=== PATIENT | female | born 1985 | race Caucasian/White ===

== ENCOUNTER 2021-08-07 09:50 | Outpatient (CLI) | payer OTHER, SELFPAY ==
[2021-08-07] VITALS (13 sets, daily range): BP systolic 146–169; BP diastolic 94–104; PULSE 68–81; RESP 16; TEMP 37.4; BMI 21.6
[2021-08-07] MEDS: LABETALOL HCL 100 MG TABLET PO (10:33)
[2021-08-07 10:34] LABS: Basophils Percent Auto 0.2 % (0.2-1.2); Eosinophils Absolute Auto 0.1 K/mm3 (0-0.3); Eosinophils Percent Auto 0.7 % (0-4.4); Hematocrit 35.7 % (37.0-47.0); Hemoglobin 12.1 g/dL (12.0-15.0); Immature Granulocyte Absolute 0.05 K/mm3 (0.00-0.031); Immature Granulocyte Percent A 0.6 % (0-0.5); Lymphocytes Absolute Auto 1.54 K/mm3 (0.9-3.2); Lymphocytes Percent Auto 18.6 % (18.3-44.2); Mean Corpuscular HGB Conc 33.9 g/dl (32-36); Mean Corpuscular Volume 97.3 fl (80-100); Mean Platelet Volume 10.7 fl (7.4-10.4); Monocytes Absolute Auto 0.6 K/mm3 (0.1-0.6); Monocytes Percent Auto 7.7 % (2.6-8.5); Neutrophils Percent Auto 72.2 % (45.5-73.1); Platelet Count Result 185 k/mm3 (150-375); Red Blood Count 3.67 M/mm3 (4.2-5.4); Red Cell Distribution Width 12.9 % (11.5-14.5); White Blood Count 8.3 K/mm3 (4.5-10.0)
[2021-08-07 10:42] LABS: Alanine Aminotransferase 14 U/L (4-35); Albumin Level 3.6 g/dL (3.5-5.1); Alkaline Phosphatase 60 U/L (38-126); Anion Gap 2 mmol/L (8-16); Appearance Urine Clear (Clear); Aspartate Amino Transferase 21 U/L (14-36); Bilirubin Urine Negative (Negative); Bilirubin,Total < 0.1 mg/dL (0.2-1.3); Blood Urea Nitrogen 13 mg/dL (7-17); Blood Urine Negative (Negative); Calcium 8.6 mg/dL (8.4-10.2); Carbon Dioxide 24 mmol/L (22-30); Chloride 107 mmol/L (98-107); Color Urine Yellow (Yellow); Estimated Glomerular Filt Rate > 60; Glucose 82 mg/dL (65-110); Glucose Urine UA Negative (Negative); Ketones Urine Negative (Negative); Leukocyte Esterase Ur Negative LEU/UL (Negative); Nitrate Urine Negative (Negative); Protein Urine Negative (Negative); Sodium 133 mmol/L (137-145); Urobilinogen Urine 0.2 mg/dL (<2.0)
[2021-08-07 10:43] LABS: Total Protein Urine Random 13 mg/dL; Ur Ttl Prot Creatinine Ratio 0.68 mg/mg (0-0.20)
[2021-08-07 10:45] LABS: Add Urine Microscopic? NO
--- NOTE | 2021-08-07 11:57 | PC.NURSE ---
Dr. Wallis on unit and reviewed BP's with him. Labetalol 100 mg was given PO at 1033. Reviewed lab results and FHR tracing. Discharge instructions received. Pt was already instructed in the office today to increase her Labetalol to 200 mg by mouth every 12 hrs. Pt to check BP's at home twice a day and notify Dr. Wallis if either SBP is >160 OR DBP is > 100. Supplies given for 24 hr urine collection.
--- NOTE | 2021-08-07 11:58 | WPDOBADMIT ---
Obstetrics - Admit Note Admission Note: record reviewed. Additions to the history and/or subsequent changes in the physical findings follow. 36 y/o at 29 weeks gestation with chronic HTN, here with elevated bp at home and in the office. No headaches, visual field change or epigastric / RUQ pain. Good movement. Takes labetalol 100 mg po bid. BP 150/90. AVSS ABD soft, nontender, gravid NST good variability; TOCO: no contrations EXT nontender, no edema. NEURO: DTR 2/4 and symmetric Labs normal, with exception of elevated urine Pr/Cr of 0.68. A: CHTN, with worsening bp control. P: Home to collect 24 hour urine for protein. Increase labetalol to 200 mg po bid. F/u early next week as scheduled. Reviewed instructions, precautions.
== END 2021-08-07 12:15 | disposition home or self-care (01) ==
LOC: ANHOBOP 09:58 → ANHOBPP 10:01
PROVIDERS: PCP Physician Assistant; Visit Provider Obstetrics & Gynecology
DX: O16.3 Unspecified maternal hypertension, third trimester (principal); Z3A.34 34 weeks gestation of pregnancy
CPT/HCPCS: 36415; 59025; 80053; 81003; 82570; 84156; 84550; 85025; 99199; A9270

== ENCOUNTER 2021-08-09 09:41 | Outpatient (CLI) | payer OTHER, SELFPAY ==
[2021-08-09 09:52] VITALS: BMI 21.6
[2021-08-09 10:11] LABS: Collection Time Urine 24 HOURS
[2021-08-09 10:15] LABS: Total Volume 24 Hour Urine 2800 ml
[2021-08-09 10:23] LABS: Creatinine Clearance Urine 111.1 ml/min (75-125); Creatinine Urine 35.2 mg/dL; Patient Weight 118 Lbs
[2021-08-09 10:31] LABS: Specific Gravity Ur 1.008
[2021-08-09 11:16] LABS: Total Protein Urine 24 Hr 168 mg/24hr (0-149); Total Protein Urine Random < 6.0 mg/dL (0.0-11.9)
== END 2021-08-09 09:42 | disposition home or self-care (01) ==
LOC: ANHOBOP 09:47
PROVIDERS: PCP Physician Assistant; Visit Provider Obstetrics & Gynecology
DX: O13.9 Gestational [pregnancy-induced] hypertension without significant proteinuria, unspecified trimester (principal); Z3A.00 Weeks of gestation of pregnancy not specified
CPT/HCPCS: 81050; 82575; 84156

== ENCOUNTER 2021-08-28 21:20 | Outpatient (CLI) | payer OTHER, SELFPAY ==
[2021-08-28] VITALS (8 sets, daily range): BP systolic 130–187; BP diastolic 81–103; PULSE 66–92
[2021-08-28 21:55] LABS: Basophils Percent Auto 0.3 % (0.2-1.2); Eosinophils Absolute Auto 0.1 K/mm3 (0-0.3); Eosinophils Percent Auto 1.1 % (0-4.4); Hematocrit 36.3 % (37.0-47.0); Hemoglobin 12.2 g/dL (12.0-15.0); Immature Granulocyte Absolute 0.03 K/mm3 (0.00-0.031); Immature Granulocyte Percent A 0.3 % (0-0.5); Mean Corpuscular HGB Conc 33.6 g/dl (32-36); Mean Corpuscular Hemoglobin 32.4 pg (26-34); Mean Corpuscular Volume 96.5 fl (80-100); Mean Platelet Volume 11.6 fl (7.4-10.4); Monocytes Absolute Auto 0.8 K/mm3 (0.1-0.6); Monocytes Percent Auto 8.6 % (2.6-8.5); Neutrophils Absolute Auto 5.6 K/mm3 (1.3-6.7); Neutrophils Percent Auto 60.7 % (45.5-73.1); Platelet Count Result 155 k/mm3 (150-375); Red Blood Count 3.76 M/mm3 (4.2-5.4); Red Cell Distribution Width 12.6 % (11.5-14.5); White Blood Count 9.3 K/mm3 (4.5-10.0)
[2021-08-28 21:56] LABS: Appearance Urine Clear (Clear); Bilirubin Urine Negative (Negative); Color Urine Yellow (Yellow); Glucose Urine UA Negative (Negative); Ketones Urine Negative (Negative); Leukocyte Esterase Ur Negative LEU/UL (NEGATIVE); Nitrate Urine Negative (Negative); Protein Urine Negative (Negative); Specific Grav Ur 1.015 (1.001-1.035); Urobilinogen Urine 0.2 mg/dL (<2.0)
[2021-08-28 22:02] LABS: Mucus Urine Rare /lpf; Squamous Epithelial Cell Urine Many /hpf (Few); WBC Urine 0-3 /hpf (0-3)
[2021-08-28 22:03] LABS: Add Urine Microscopic? YES; Blood Urine Trace-Intact (Negative)
[2021-08-28 22:04] LABS: Total Protein Urine Random 11 mg/dL
[2021-08-28 22:11] LABS: Creatinine Urine 41.1 mg/dL; Ur Ttl Prot Creatinine Ratio 0.27 mg/mg (0-0.20)
--- NOTE | 2021-08-28 22:23 | PC.NURSE ---
Paged Dr. Wallis
[2021-08-28 22:24] LABS: Alanine Aminotransferase 17 U/L (4-35); Albumin Level 3.6 g/dL (3.5-5.1); Alkaline Phosphatase 85 U/L (38-126); Anion Gap 4 mmol/L (8-16); Aspartate Amino Transferase 25 U/L (14-36); Bilirubin,Total < 0.1 mg/dL (0.2-1.3); Blood Urea Nitrogen 16 mg/dL (7-17); Calcium 8.7 mg/dL (8.4-10.2); Carbon Dioxide 22 mmol/L (22-30); Chloride 107 mmol/L (98-107); Estimated Glomerular Filt Rate > 60; Glucose 90 mg/dL (65-110); Potassium 3.9 mmol/L (3.4-5.0); Sodium 133 mmol/L (137-145); Uric Acid 6.6 mg/dL (2.5-7.5)
[2021-08-28] MEDS: NIFEdipine 10 MG CAPSULE PO (22:42)
--- NOTE | 2021-08-28 23:06 | PC.NURSE ---
[id number]- Dr. Wallis responded to page. report given. BP's reviewed. order received to start Procardia 10mg PO now and may give second dose in 30 minutes if BP remains >160/110. will continue to monitor pt and call if questions/concerns.
--- NOTE | 2021-08-28 23:47 | PC.NURSE ---
paged Dr. Wallis
== END 2021-08-28 23:55 | disposition home or self-care (01) ==
LOC: ANHOBOP 21:25 → ANHOBPP 09-02 06:43
PROVIDERS: PCP Physician Assistant; Visit Provider Obstetrics & Gynecology
DX: O13.9 Gestational [pregnancy-induced] hypertension without significant proteinuria, unspecified trimester (principal); Z3A.00 Weeks of gestation of pregnancy not specified
CPT/HCPCS: 36415; 59025; 80053; 81001; 82570; 84156; 84550; 85025; 87086; 87088; 99199; A9270

== ENCOUNTER 2021-09-04 09:53 | Outpatient (RCR) | payer OTHER, SELFPAY ==
[2021-08-26 14:55] VITALS: BP 152/88; PULSE 84
[2021-09-04 10:39] VITALS: BP 154/99; PULSE 77
== END 2021-11-24 23:59 | disposition home or self-care (01) ==
LOC: ANHOBOP 09:53
PROVIDERS: PCP Physician Assistant; Visit Provider Obstetrics & Gynecology
DX: O16.3 Unspecified maternal hypertension, third trimester (principal); Z3A.31 31 weeks gestation of pregnancy; Z3A.33 33 weeks gestation of pregnancy
CPT/HCPCS: 59025

== ENCOUNTER 2021-09-08 21:37 | Inpatient (IN) | payer OTHER, SELFPAY ==
[2021-09-08] VITALS (21 sets, daily range): BP systolic 135–202; BP diastolic 90–119; PULSE 78–99; BMI 22.9
[2021-09-08 17:28] LABS: Basophils Absolute Auto 0.1 K/mm3 (0.0-0.1); Basophils Percent Auto 0.5 % (0.2-1.2); Eosinophils Absolute Auto 0.1 K/mm3 (0-0.3); Eosinophils Percent Auto 1.2 % (0-4.4); Hematocrit 36.1 % (37.0-47.0); Hemoglobin 12.3 g/dL (12.0-15.0); Immature Granulocyte Absolute 0.04 K/mm3 (0.00-0.031); Immature Granulocyte Percent A 0.4 % (0-0.5); Lymphocytes Absolute Auto 2.23 K/mm3 (0.9-3.2); Lymphocytes Percent Auto 23.2 % (18.3-44.2); Mean Corpuscular HGB Conc 34.1 g/dl (32-36); Mean Corpuscular Hemoglobin 32.9 pg (26-34); Mean Corpuscular Volume 96.5 fl (80-100); Mean Platelet Volume 11.2 fl (7.4-10.4); Monocytes Absolute Auto 0.9 K/mm3 (0.1-0.6); Monocytes Percent Auto 9.1 % (2.6-8.5); Neutrophils Absolute Auto 6.3 K/mm3 (1.3-6.7); Neutrophils Percent Auto 65.6 % (45.5-73.1); Platelet Count Result 166 k/mm3 (150-375); Red Blood Count 3.74 M/mm3 (4.2-5.4); Red Cell Distribution Width 12.5 % (11.5-14.5); White Blood Count 9.6 K/mm3 (4.5-10.0)
[2021-09-08 17:29] LABS: Appearance Urine Clear (Clear); Bilirubin Urine Negative (Negative); Glucose Urine UA Negative (Negative); Ketones Urine Negative (Negative); Leukocyte Esterase Ur Negative LEU/UL (NEGATIVE); Nitrate Urine Negative (Negative); Protein Urine Negative (Negative); Specific Grav Ur 1.015 (1.001-1.035); Urobilinogen Urine 0.2 mg/dL (<2.0)
[2021-09-08 17:37] LABS: Add Urine Microscopic? YES; Blood Urine Trace-Intact (Negative); Color Urine Light Yellow (Yellow)
[2021-09-08 17:38] LABS: Alanine Aminotransferase 24 U/L (6-35); Albumin Level 3.7 g/dL (3.5-5.1); Alkaline Phosphatase 97 U/L (38-126); Anion Gap 4 mmol/L (8-16); Aspartate Amino Transferase 27 U/L (14-36); Bilirubin,Total < 0.1 mg/dL (0.2-1.3); Blood Urea Nitrogen 17 mg/dL (7-17); Calcium 8.7 mg/dL (8.4-10.2); Carbon Dioxide 22 mmol/L (22-30); Chloride 105 mmol/L (98-107); Creatinine Urine 17.9 mg/dL; Estimated Glomerular Filt Rate > 60; Glucose 87 mg/dL (65-110); Potassium 4.1 mmol/L (3.4-5.0); Sodium 131 mmol/L (137-145); Total Protein Urine Random 22 mg/dL; Ur Ttl Prot Creatinine Ratio 1.23 mg/mg (0-0.20); Uric Acid 6.8 mg/dL (2.5-7.5)
[2021-09-08 17:41] LABS: RBC Urine 0-2 /hpf (0-2); Squamous Epithelial Cell Urine Occasional /hpf (Few); WBC Urine 0-3 /hpf (0-3)
--- NOTE | 2021-09-08 17:44 | PC.NURSE ---
Dr. Duarte notified of pt blood pressures and blood work. Orders received for pt to received 20mg IV labetalol and order steroids.
--- NOTE | 2021-09-08 17:46 | PC.NURSE ---
Dr. Duarte called back stating Dr. Wallis will come down and see the pt.
[2021-09-08] MEDS: LABETALOL HCL INJ 100 MG/20 ML VIAL 20 MG IV PUSH (18:16)
[2021-09-08] MEDS: BETAMETHASONE SOD PHOS/ACETATE 30 MG/5 ML VIAL 12 MG IM (18:20)
[2021-09-08] MEDS: LABETALOL HCL INJ 100 MG/20 ML VIAL 40 MG IV PUSH (18:45)
[2021-09-08] MEDS: NIFEdipine 10 MG CAPSULE PO (19:10)
[2021-09-09] VITALS (25 sets, daily range): BP systolic 142–168; BP diastolic 72–109; PULSE 68–119; RESP 14–16; TEMP 36.8; O2SAT 96–98
[2021-09-09 05:46] LABS: Basophils Percent Auto 0.1 % (0.2-1.2); Hematocrit 37.8 % (37.0-47.0); Hemoglobin 13.1 g/dL (12.0-15.0); Immature Granulocyte Absolute 0.06 K/mm3 (0.00-0.031); Immature Granulocyte Percent A 0.6 % (0-0.5); Lymphocytes Percent Auto 10.4 % (18.3-44.2); Mean Corpuscular HGB Conc 34.7 g/dl (32-36); Mean Corpuscular Volume 95.2 fl (80-100); Mean Platelet Volume 11.2 fl (7.4-10.4); Monocytes Absolute Auto 0.2 K/mm3 (0.1-0.6); Monocytes Percent Auto 1.9 % (2.6-8.5); Neutrophils Absolute Auto 8.4 K/mm3 (1.3-6.7); Platelet Count Result 177 k/mm3 (150-375); Red Blood Count 3.97 M/mm3 (4.2-5.4); Red Cell Distribution Width 12.3 % (11.5-14.5); White Blood Count 9.7 K/mm3 (4.5-10.0)
[2021-09-09 05:56] LABS: Alanine Aminotransferase 27 U/L (6-35); Albumin Level 3.9 g/dL (3.5-5.1); Alkaline Phosphatase 112 U/L (38-126); Anion Gap 6 mmol/L (8-16); Aspartate Amino Transferase 29 U/L (14-36); Bilirubin,Total < 0.1 mg/dL (0.2-1.3); Blood Urea Nitrogen 15 mg/dL (7-17); Carbon Dioxide 18 mmol/L (22-30); Chloride 108 mmol/L (98-107); Estimated CRCL calculation 68 ml/min; Estimated Glomerular Filt Rate > 60; Glucose 172 mg/dL (65-110); Potassium 4.4 mmol/L (3.4-5.0); Sodium 132 mmol/L (137-145); Uric Acid 6.8 mg/dL (2.5-7.5)
[2021-09-09] MEDS: ASPIRIN 81 MG CHEWABLE TABLET PO (06:37)
[2021-09-09] MEDS: LABETALOL HCL 100 MG TABLET 300 MG PO ×2 (07:03→19:00)
[2021-09-09] MEDS: NIFEdipine 30 MG TAB.ER.24 60 MG PO (07:03)
[2021-09-09] MEDS: CHOLECALCIFEROL 1,000 UNITS TABLET 2000 UNITS PO (09:00)
[2021-09-09] MEDS: MULTIVIT/MIN/PREN/FOL AC/IRON TABLET 1 TAB PO (09:21)
[2021-09-09] MEDS: LORATADINE 10 MG TABLET PO (09:21)
[2021-09-09] MEDS: NIFEdipine 10 MG CAPSULE PO ×2 (11:52→13:13)
--- NOTE | 2021-09-09 15:45 | PC.NURSE ---
Paged Dr. Wallis ab pt BP
--- NOTE | 2021-09-09 16:15 | PC.NURSE ---
Called Bimal and KANDI about pt BP
--- NOTE | 2021-09-09 17:26 | PM.IMHP ---
H&P: HPI History of Present Illness Date/Time: 09/09/21 17:26 36 y/o at 33 5/7 weeks by IVF dating. She has chronic hypertension and bp has worsened over recent weeks. Currently taking labetalol 300 mg po bid and Procardia XL 60 mg q am. She phoned because bp was elevated at home. Was instructed to come to L&D last evening and bp found to be 190/120 on admission. BP did not respond much to IV labetalol, but did respond to nifedipine 10 mg po last evening. Betamethasone IM given last night, and 24 hour urine collection begun. Dull sinus headache this morning, but nothing severe. No visual field change. No abdominal pain. No edema. Good movement. No contractions. No vaginal bleeding. She has an appointment with [facility] in two days. Chief Complaint: Hi blood pressure Review of Systems Review of Systems: All systems reviewed & are unremarkable except as noted in HPI and below PMFSH Past Medical History Medical History (Updated 09/09/21 @ 17:31 by Sanjiv Wallis MD) Chronic hypertension affecting History of gestational diabetes Surgical History Surgical History History of dilation and curettage Comments History of FAVD at 40 4/7 weeks, complicated by GDM Meds Home Medications and Allergies Home Medications Medication Instructions Recorded Confirmed Type PNV cmb#95-ferrous fumarate-FA 1 tablet PO DAILY 08/07/21 09/08/21 History [] aspirin 81 mg PO DAILY 08/07/21 09/08/21 History cholecalciferol (vitamin D3) 2,000 unit PO DAILY 08/07/21 09/08/21 History [Vitamin D3] labetalol 300 mg PO BID 08/07/21 09/08/21 History nifedipine 60 mg PO DAILY 09/08/21 09/08/21 History Allergies Allergy/AdvReac Type Severity Reaction Status Date / Time Penicillins Allergy Mild Rash Verified 08/07/21 10:40 Vital Signs Vital Signs - 24 hr 09/08/21 17:30 09/08/21 17:36 09/08/21 17:45 Temperature Pulse Rate 79 78 Blood Pressure 190/111 H 195/101 H 177/112 H Pulse Oximetry 09/08/21 18:15 09/08/21 18:16 09/08/21 18:30 Temperature Pulse Rate 81 81 78 Blood Pressure 192/116 H 173/111 H Pulse Oximetry 09/08/21 18:45 09/08/21 19:00 09/08/21 19:30 Temperature Pulse Rate 84 86 88 Blood Pressure 178/119 H 150/99 H Pulse Oximetry 09/08/21 19:40 09/08/21 19:50 09/08/21 20:00 Temperature Pulse Rate 97 95 99 Blood Pressure 141/90 H 144/91 H 135/99 H Pulse Oximetry 09/08/21 20:10 09/08/21 20:20 09/08/21 20:30 Temperature Pulse Rate 98 96 92 Blood Pressure 154/103 H 146/96 H 138/97 H Pulse Oximetry 09/08/21 20:45 09/08/21 21:00 09/08/21 21:15 Temperature Pulse Rate 93 92 93 Blood Pressure 149/98 H 138/95 H 139/96 H Pulse Oximetry 09/08/21 23:35 09/09/21 03:15 09/09/21 05:34 Temperature Pulse Rate 96 98 106 H Blood Pressure 143/98 H 158/100 H 157/99 H Pulse Oximetry 09/09/21 06:39 09/09/21 06:43 09/09/21 07:49 Temperature 36.8 C Pulse Rate 97 98 Blood Pressure 160/107 H Pulse Oximetry 09/09/21 07:50 09/09/21 07:56 09/09/21 09:35 Temperature Pulse Rate 95 92 Blood Pressure 153/104 H 164/106 H 159/102 H Pulse Oximetry 09/09/21 11:39 09/09/21 12:55 09/09/21 14:15 Temperature Pulse Rate 92 Blood Pressure 160/109 H 166/102 H 154/102 H Pulse Oximetry 09/09/21 14:41 09/09/21 14:46 09/09/21 14:51 Temperature Pulse Rate Blood Pressure Pulse Oximetry 98 97 97 09/09/21 14:56 09/09/21 15:01 09/09/21 15:06 Temperature Pulse Rate Blood Pressure Pulse Oximetry 98 96 97 09/09/21 15:11 09/09/21 15:16 09/09/21 15:21 Temperature Pulse Rate Blood Pressure Pulse Oximetry 97 97 98 09/09/21 15:25 Temperature Pulse Rate Blood Pressure 162/100 H Pulse Oximetry Exam Const: Orientation/consciousness: patient oriented x3 Other: Well-developed, well-nona
--- NOTE | 2021-09-09 17:27 | PC.NURSE ---
Dr. Wallis on unit. Aware of patients BP and HR. Dr. Wallis to bedside.
--- NOTE | 2021-09-09 18:00 | PC.NURSE ---
Dr. Wallis from Bedside. New orders received for ativan 1 mg now, 30 mg Procardia XL now and to repeat every night with her 60 mg Procardia XL every morning, continue labetalol 300mg BID. He would like to be called over night if she has persistent BP of 160/110.
[2021-09-09] MEDS: NIFEdipine 30 MG TAB.ER.24 PO (18:18)
[2021-09-09] MEDS: BETAMETHASONE SOD PHOS/ACETATE 30 MG/5 ML VIAL 12 MG IM (18:28)
--- NOTE | 2021-09-09 18:28 | PC.NURSE ---
Report given to HONEY Camp
[2021-09-09] MEDS: LORazepam (*CRX) 0.5 MG TABLET 1 MG PO (18:59)
[2021-09-09 21:22] LABS: Total Volume 24 Hour Urine 2650 ml
[2021-09-09 21:34] LABS: Total Protein Urine Random 24 mg/dL
[2021-09-09 21:36] LABS: Total Protein Urine 24 Hr 636 mg/24hr (28-141)
[2021-09-09 21:41] LABS: Collection Time Urine 24 HOURS
[2021-09-09 21:47] LABS: Patient Weight 125 Lbs
[2021-09-09 21:48] LABS: Total Volume 24 Hour Urine 2650 ml
[2021-09-09 21:56] LABS: Creatinine Urine 43.9 mg/dL
[2021-09-10] VITALS (7 sets, daily range): BP systolic 148–160; BP diastolic 72–94; PULSE 68–108; RESP 14; TEMP 36.9; O2SAT 98
[2021-09-10] MEDS: NIFEdipine 30 MG TAB.ER.24 60 MG PO (07:02)
[2021-09-10] MEDS: LABETALOL HCL 100 MG TABLET 300 MG PO (07:03)
[2021-09-10] MEDS: CHOLECALCIFEROL 1,000 UNITS TABLET 2000 UNITS PO (09:13)
[2021-09-10] MEDS: MULTIVIT/MIN/PREN/FOL AC/IRON TABLET 1 TAB PO (09:13)
[2021-09-10] MEDS: ASPIRIN 81 MG CHEWABLE TABLET PO (09:14)
--- NOTE | 2021-09-10 09:14 | PM.OBPNVD ---
OB - PN: Subj Subjective Date/time seen: 09/10/21 09:14 No headache, no abdominal pain, no edema. Good movement. Anxiety improved after a dose of Ativan 1 mg po last night. BP 150/90, stable. AVSS. ABD soft, nontender, gravid NST reactive TOCO: no contractions EXT nontender A: Chronic HTN at 33 weeks gestation, now with superimposed preeclampsia. BP improved. Anxiety. P: Continue antihypertensives. S/p steroids. Home on light activity. She has an appointment with [facility] tomorrow. We reviewed instructions and precautions in detail. She will f/u with me next week. OB - PN: Obj Data Labs CBC & Chem 7: 09/09/21 05:40 09/09/21 05:40 Labs: Laboratory Results - last 24 hr 09/08/21 09/08/21 20:50 20:50 U Random Total Protein 24 Ur 24 Hour Volume 2650 2650 Urine Creatinine 43.9 Creatinine Clearance 112.0 Ur Total Protein 24 Hr 636 H OB - PN A/P Time Spent With Patient Time: Total time spent is greater than 50% in coordination of care (as documented) at patient's floor/unit and/or counseling patient:
--- NOTE | 2021-09-16 08:48 | PM.OBTRLD ---
OB - Triage/Final Diagnosis Visit Information Comments/Additional reasons for admission: I have assessed the risk for this patient, Beatrice Fryaney, and determined that she would benefit from observation care. Evaluation Laboratory results: Laboratory Tests 09/08/21 09/08/21 09/08/21 17:21 17:21 17:21 WBC 9.6 RBC 3.74 L Hgb 12.3 Hct 36.1 L MCV 96.5 MCH 32.9 MCHC 34.1 RDW 12.5 Plt Count 166 MPV 11.2 H Immature Gran % (Auto) 0.4 Neut % (Auto) 65.6 Lymph % (Auto) 23.2 Fergus % (Auto) 9.1 H Eos % (Auto) 1.2 Baso % (Auto) 0.5 Lymph # (Auto) 2.23 Fergus # (Auto) 0.9 H Eos # (Auto) 0.1 Baso # (Auto) 0.1 Abs Immat Gran (auto) 0.04 H Absolute Neuts (auto) 6.3 Absolute Nucleated RBC 0.0 Nucleated RBC % 0.0 Sodium Potassium Chloride Carbon Dioxide Anion Gap BUN Creatinine Estim Creat Clear Calc Estimated GFR Glucose Uric Acid Calcium Total Bilirubin AST ALT Alkaline Phosphatase Total Protein Albumin Urine Color Light yellow Urine Appearance Clear Urine pH 7.0 Ur Specific [place] 1.015 Urine Protein Negative Urine Glucose (UA) Negative Urine Ketones Negative Ur Blood (Man) Trace-intact Urine Nitrate Negative Urine Bilirubin Negative Urine Urobilinogen 0.2 Ur Leukocyte Esterase Negative Urine RBC 0-2 Urine WBC 0-3 Ur Squamous Epith Cells Occasional U Random Total Protein 22 Ur 24 Hour Volume Urine Creatinine 17.9 Creatinine Clearance Ur Total Protein 24 Hr Protein/Creat Ratio 2 1.23 H 09/08/21 09/08/21 09/08/21 17:21 20:50 20:50 WBC RBC Hgb Hct MCV MCH MCHC RDW Plt Count MPV Immature Gran % (Auto) Neut % (Auto) Lymph % (Auto) Fergus % (Auto) Eos % (Auto) Baso % (Auto) Lymph # (Auto) [place] # (Auto) Eos # (Auto) Baso # (Auto) Abs Immat Gran (auto) Absolute Neuts (auto) Absolute Nucleated RBC Nucleated RBC % Sodium 131 L Potassium 4.1 Chloride 105 Carbon Dioxide 22 Anion Gap 4 L BUN 17 Creatinine 0.70 Estim Creat Clear Calc Not Reportable Estimated GFR > 60 Glucose 87 Uric Acid 6.8 Calcium 8.7 Total Bilirubin < 0.1 L AST 27 ALT 24 Alkaline Phosphatase 97 Total Protein 7.0 Albumin 3.7 Urine Color Urine Appearance Urine pH Ur Specific [place] Urine Protein Urine Glucose (UA) Urine Ketones Ur Blood (Man) Urine Nitrate Urine Bilirubin Urine Urobilinogen Ur Leukocyte Esterase Urine RBC Urine WBC Ur Squamous Epith Cells U Random Total Protein 24 Ur 24 Hour Volume 2650 2650 Urine Creatinine 43.9 Creatinine Clearance 112.0 Ur Total Protein 24 Hr 636 H Protein/Creat Ratio 2 09/09/21 09/09/21 05:40 05:40 WBC 9.7 RBC 3.97 L Hgb 13.1 Hct 37.8 MCV 95.2 MCH 33.0 MCHC 34.7 RDW 12.3 Plt Count 177 MPV 11.2 H Immature Gran % (Auto) 0.6 H Neut % (Auto) 87.0 H Lymph % (Auto) 10.4 L [place] % (Auto) 1.9 L Eos % (Auto) 0.0 Baso % (Auto) 0.1 L Lymph # (Auto) 1.00 F[place] # (Auto) 0.2 Eos # (Auto) 0.0 Baso # (Auto) 0.0 Abs Immat Gran (auto) 0.06 H Absolute Neuts (auto) 8.4 H Absolute Nucleated RBC 0.0 Nucleated RBC % 0.0 Sodium 132 L Potassium 4.4 Chloride 108 H Carbon Dioxide 18 L Anion Gap 6 L BUN 15 Creatinine 0.80 Estim Creat Clear Calc 68 Estimated GFR > 60 Glucose 172 H Uric Acid 6.8 Calcium 9.0 Total Bilirubin < 0.1 L AST 29 ALT 27 Alkaline Phosphatase 112 Total Protein 7.0 Albumin 3.9 Urine Color Urine Appearance Urine pH Ur Specific [place] Urine Protein Urine Glucose (UA) Urine Ketones Ur Blood (Man) Urine Nitrate Urine Bilirubin Urine Urobilinogen Ur Leukocyte Esterase Urine
== END 2021-09-10 09:45 | disposition home or self-care (01) | DRG 833 ==
LOC: ANHOBOP 22:25 → ANHOBPP 22:25
PROVIDERS: Admitting Provider Obstetrics & Gynecology; PCP Physician Assistant; Visit Provider Obstetrics & Gynecology
DX: O11.3 Pre-existing hypertension with pre-eclampsia, third trimester (principal); Z3A.33 33 weeks gestation of pregnancy; O99.343 Other mental disorders complicating pregnancy, third trimester
CPT/HCPCS: 36415; 59025; 80053; 81001; 81050; 82570; 82575; 84156; 84550; 85025; 87086; 96372; 99199; A9270; J0702

== ENCOUNTER 2024-03-17 10:44 | Outpatient (CLI) | payer OTHER, SELFPAY ==
--- NOTE | ~2024-03-17 | XR_ITS ---
EXAMINATION: XR abdomen/kub 1V DATE: 03/17/2024 11:13 INDICATION: Kidney stones. TECHNIQUE: A supine view of the abdomen on 2 radiographs was obtained. COMPARISON: None. FINDINGS: There are no dilated loops of bowel. There is a large volume of stool in the colon. There a re approximately 4 stones in right kidney measuring up to 3 mm. There are approximately 5 stones in l eft kidney measuring up to 4 mm. IMPRESSION: 1. Bilateral kidney stones. Reviewed, dictated and finalized at location A. [facility] IMPRESSION: 1. Bilateral kidney stones.
== END 2024-03-17 10:45 | disposition home or self-care (01) ==
LOC: ANHIMG 10:49
PROVIDERS: PCP Physician Assistant; Visit Provider Urology
DX: N20.0 Calculus of kidney (principal); Z87.442 Personal history of urinary calculi
CPT/HCPCS: 74018

== ENCOUNTER 2024-09-28 17:07 | Outpatient (CLI) | payer OTHER, SELFPAY ==
--- NOTE | ~2024-09-28 | XR_ITS ---
Supine view of the abdomen Clinical history: Kidney stone COMPARISON: 03/17/2024 Findings: Bowel gas pattern is nonspecific. No evidence for obstruction or free air. Multiple small b ilateral renal stones are present, similar to prior exam. Osseous structures are intact. Impression: Multiple small bilateral renal stones, similar to prior exam. Reviewed, dictated and finalized at [facility]. Impression: Multiple small bilateral renal stones, similar to prior exam.
--- OUTSIDE RECORDS SUMMARY | 2024-09-28 17:12 | XMS_ITS | Encounter Summary ---
Author Organization [facility] Facility Care Team Providers Care Tunneling Machine Operator Name Role Phone Chacha Sellers Primary Care Provider [phone] Wilbert Dupont MD Unavailable + [phone] Encounter Details Date Type Department Care Team (Latest Contact Info) Description 01/27/2018 Orders Only [facility]INCON[facility] ProviderOralia MD [address] [place] [id number] Social History Tobacco Use Types Packs/Day Years Used Date Smoking Tobacco: Never Assessed Comments Unknown Sex and Gender Information Value Date Recorded Sex Assigned at Not on file Legal Sex Female 11:51 AM MANAGER ENGINE Gender Identity Not on file Sexual Orientation Not on file documented as of this encounter Plan of Treatment Not on file documented as of this encounter Procedures Procedure Name Priority Date/Time Associated Diagnosis Comments SCAN - PATHOLOGY 02/02/2018 12:0 0 AM CDT documented in this encounter Results * SCAN - PATHOLOGY (02/02/2018 12:00 AM CDT) Narrative 02/02/2018 12:00 AM CDT Ordered by an unspecified provider. Historical Provider Final Res ult documented in this encounter Visit Diagnoses Not on filedocumented in this encounter Care Teams Tunneling Machine Operator Relationship Specialty Start Date End Date Chacha Sellers PA [address] [place] [address] PCP - General Family Medicine 03/09/19 Wilbert Dupont MD [address] [place] [address] Consulting Physician Family Medicine 03/09/19 documented as of this encounter
--- OUTSIDE RECORDS SUMMARY | 2024-09-28 17:12 | XMS_ITS | Encounter Summary ---
Author Organization [facility] Facility Care Team Providers Care Electronics Department Manager Name Role Phone Chacha Sellers Primary Care Provider [phone] Wilbert Dupont MD Unavailable + [phone] Encounter Details Date Type Department Care Team (Latest Contact Info) Description 07/03/2016 Orders Only [facility] CLINCONV ProviderOralia MD [address] [place] [address] Social History Tobacco Use Types Packs/Day Years Used Date Smoking Tobacco: Never Assessed Comments Unknown Sex and Gender Information Value Date Recorded Sex Assigned at Not on file Legal Sex Female 11:51 AM SENIOR CREDIT OFFICER Gender Identity Not on file Sexual Orientation Not on file documented as of this encounter Plan of Treatment Not on file documented as of this encounter Procedures Procedure Name Priority Date/Time Associated Diagnosis Comments CARDIOLOGY REPORT 07/03/2016 12: 00 AM SENIOR CREDIT OFFICER documented in this encounter Results * CARDIOLOGY REPORT (07/03/2016 12:00 AM SENIOR CREDIT OFFICER) Anatomical Region Laterality Modality Other Narrative 07/03/2016 12:00 AM SENIOR CREDIT OFFICER Ordered by an unspecified provider. Historical Provider [facility] JEWEL[facility] MCCARTHY Final Result documented in this encounter Visit Diagnoses Not on filedocumented in this encounter Care Teams Electronics Department Manager Relationship Specialty Start Date End Date Chacha Sellers PA [address] [place] [address] PCP - General Family Medicine 03/09/19 Wilbert Dupont MD [address] [place] [address] Consulting Physician Family Medicine 03/09/19 documented as of this encounter
--- OUTSIDE RECORDS SUMMARY | 2024-09-28 17:12 | XMS_ITS | Referral Summary ---
Author Organization [address] Address [address] [address] Care Team Providers Care Application Security Developer Name Role Phone Chacha Sellers Primary Care Provider [phone] Wilbert Dupont MD Unavailable + [phone] Encounters Date Type Department Care Team Description 09/13/2024 10:00 AM CDT Telemedicine [facility] Family Medicine [address] [place] [id number] Annabel Desai NP Anxiety (Primary Dx) from Last 3 Months Allergies Active Allergy Reactions Criticality Noted Date Comments Adhesive Swelling Medium 01/24/2021 Penicillin V Potassium Rash Medium 06/13/2019 rash Penicillins Rash Medium 05/23/2003 rash Medications chlorthalidone (HYGROTON) 25 mg tablet Take 0.5 tablets (12.5 mg total) by mouth daily 05/29/19 25 026 Active escitalopram (LEXAPRO) 10 mg tabletIndicati ons:Anxiety Take 1 tablet (10 mg total) by mouth daily 90 tablet 4 09/14/19 25 Active LORazepam (ATIVAN) 1 mg tabletIndicati ons:Situationa l anxiety Take 1 tablet (1 mg total) by mouth daily as needed for anxiety 15 tablet 10/07/19 23 025 Discontinued(Th erapy completed) NIFEdipine (NIFEdipine CC) 30 mg 24 hr tabletIndicati ons:Hypertensi on, essential Take 1 tablet (30 mg total) by mouth daily 90 tablet 3 09/29/19 24 025 Discontinued tamsulosin (FLOMAX) 0.4 mg extended release capsuleIndicat ions:Kidney stone on left side Take 1 capsule (0.4 mg total) by mouth daily 30 capsule 01/05/20 24 025 Discontinued Active Problems Problem Noted Date Diagnosed Date Dyslipidemia 10/23/2022 Assessment & Plan (11/22/2023 9:29 AM CDT): Stable. Diet controlled. Assessment & Plan (10/23/2022 10:24 AM CDT): Discussed healthy diet changes she can make. Eat fewer red meats and more lean meats. She will start exercising 30 minutes 5 times a week. She does have a family history of high cholesterol, so it is likely genetics are contributing as well. Will continue to check annually. Situational anxiety 09/01/2019 Assessment & Plan (11/22/2023 9:29 AM CDT): Stable. monitoring Assessment & Plan (10/23/2022 10:23 AM CDT): Patient given a handout with a list of counselors in the area. She will take Ativan as needed. Follow-up as needed for new or worsening symptoms. Assessment & Plan (09/01/2019 2:37 PM CDT): Encouraged pt to contact counselor and try weekly/every Other week sessions for now. Continue at home therapy techniques to help with anxiety/stress. Health maintenance examination 06/12/2019 Overview (11/22/2023): PMH: 11/22/23 Last pap: 02/2022 Last mammogram: Last dexa: Last colonoscopy/cologuard: Last tdap: 07/2021 Last Prevnar/pneumovax: Last Shingrix: Last eye exam:2023 Assessment & Plan (11/22/2023 9:15 AM CDT): PMH: 7/29/24 Last pap: 02/2022 Last mammogram: Last dexa: Last colonoscopy/cologuard: Last tdap: 07/2021 Last Prevnar/pneumovax: Last Shingrix: Last eye exam:2023 Assessment & Plan (10/23/2022 10:22 AM CDT): Health Maintenance: -PCV20: N/A -Tdap vaccine: 2021 -Influenza vaccine: 2021 -Shingles vaccine: N/A -Colonoscopy: N/A -Last WWE: 03/05/22 -Last Mammogram: N/A -Last DEXA: N/A -Last eye exam: N/A -Last MHA: N/A Patient is up-to-date on health maintenance. She is up-to-date on her labs. Work on healthy diet and exercise habits. See us annually for routine physicals. Assessment & Plan (10/22/2021 9:51 AM CDT): PMH: 10/22/2021 Last pap: 2017, 06/2020 Last mammogram: Last dexa: Last colonoscopy/cologuard: Last tdap: 10/25/2017, 07/2021 Last Prevnar/pneumovax: Last Shingrix: Last eye exam:2020 Assessment & Plan (08/19/2020 10:12 AM CDT): PMH: 08/19/2020 Last pap: 2017, 2020 Last mammogram: Last dexa: Last colonoscopy/cologuard: Last tdap: 10/25/2017 Last Prevnar/pneumovax: Last Shingrix: Last eye exam: Hypertension, essential 07/22/2016 Assessment & Plan (11/22/2023 9:29 AM CDT): Stable. Continue nifedipine Assessment & Plan (10/23/2022 10:23 AM CDT): Chronic and controlled. Continue nifedipine daily as prescribed. Patient does mention that she has noticed a few times if she does not get enough sleep that she will experience palpitations after taking her medication. This is infrequent. If symptoms persist or worsen she will let us know we can switch back to her labetalol that she was previously on. Assessment & Plan (04/03/2022 10:58 AM STAFFING SPECIALIST): Stable, patient will continue current meds. Follow-up in October with lab work Assessment & Plan (02/09/2022 11:31 AM CDT): Continue current meds Assessment & Plan (12/05/2021 11:03 AM CDT): Stable, continue current meds. Follow-up in March. Order echo to evaluate heart structure due to longstanding history of high blood pressure with recent worsening of symptoms while Assessment & Plan (10/22/2021 10:04 AM CDT): Controlled. Patient will continue current meds. Monitor for low blood pressure. Patient will check blood pressure 3 times per week and follow-up in 6 weeks. Patient will also monitor pulse. Document any episodes of palpitations. Pending the occurrences of palpitations we may need to consider a beta-raudel. Counseled patient to avoid caffeine. Recommend an echo probably in 1 year Assessment & Plan (10/14/2020 11:26 AM CDT): Stable, continue current meds. Patient may check her blood pressure just as needed. Continue with healthy diet, exercise. They are planning IVF again in the next few months. Educated patient that is seen issue becomes she will need to follow with OB regarding her htn. Resolved Problems Problem Noted Date Diagnosed Date Resolved Date Infertility associated with anovulation 07/03/2016 06/12/2019 Immunizations Immunization Administration Dates Next Due Influenza LAIV (Nasal) 12/27/2017 Influenza, Quadrivalent, Edwige l Culture-based MDCK, Preservative Free, Antibiotic Free, Intramuscular 02/03/2022 Influenza, Quadrivalent, Spl it, Intramuscular 12/27/2017 Influenza, Quadrivalent, Spl it, Preservative Free, Intramuscular 01/22/2023,03/15/2021,01/23/2020,01/31 Influenza, Trivalent, Preser vative Free, Intramuscular 01/26/2017 Pfizer SARS-CoV-2 Monovalent Vaccination (12+ Yrs) PURPLE 08/04/2020,07/12/2020 TD Preservative Free 04/26/2005 Tdap 08/08/2021,10/25/2017 Social History Tobacco Use Types Packs/Day Years Used Date Smoking Tobacco: Never Smokeless Tobacco: Never Tobacco Cessation:Counseling Given: Not Answered Alcohol Use Standard Drinks/Week Comments Never 0 (1 standard drink = 0.6 oz pur e alcohol) AUDIT-C Answer Date Recorded Q1: How often do you have a drink containing alcohol? Never 09/13/2024 Q2: How many drinks containi ng alcohol do you have on a typical day when you are drinking? Patient does not drink Q3: How often do you have si x or more drinks on one occasion? Never 09/13/2024 PHQ-2 Answer Date Recorded PHQ-2 Total Score (If total score is 3 or more points, staff should administer the PHQ-9) 0 09/13/2024 PHQ-9 Answer Date Recorded PHQ-9 Total Score 2 09/13/2024 Comments No Sex and Gender Information Value Date Recorded Sex Assigned at Not on file Legal Sex Female 11:51 AM STAFFING SPECIALIST Gender Identity Not on file Sexual Orientation Not on file Last Filed Vital Signs Vital Sign Reading Time Taken Comments Blood Pressure 136/70 01/05/2024 10:57 AM CDT Pulse 108 01/05/2024 10:57 AM CDT Temperature 36.3 C (97.3 F) 01/05/2024 10:57 AM CDT Respiratory Rate 16 01/05/2024 10:57 AM CDT Oxygen Saturation 98% 01/05/2024 10:57 AM CDT Inhaled Oxygen Concentration - - Weight 47 kg (103 lb 11.2 oz) 01/05/2024 10:57 A M CDT Height 158.1 cm (5' 2.24) 01/05/2024 10:57 AM C DT Body Mass Index 18.82 01/05/2024 10:57 AM CDT Plan of Treatment Not on file Procedures Procedure Name Priority Date/Time Associated Diagnosis Comments HEPATITIS C ANTIBODY Routine 11/27/2023 8:49 AM CDT Health maintenance examination Hypertension, essential Situational anxiety Dyslipidemia Encounter for hepatitis C screening test for low risk patient HM PAP SMEAR WITH HPV Routine 03/05/2022 from Last 3 Months or Most Recently Relevant to Health Maintenance Results * Hepatitis C antibody Blood (11/27/2023 8:49 AM CDT) Hep C Ab NON-REACTI VE NON-REACT YENI [facility] Comment: HCV antibody was non-reactive. There is no laboratory evidence of HCV infection. In most cases, no further action is required. However, if recent HCV exposure is suspected, a test for HCV RNA (test code 07376) is suggested. For additional information please refer to http://education.Trusper/faq/IIM48r7 (This link is being provided for informational/ educational purposes only.) Blood 11/27/2023 8:49 AM CDT 11/27/2023 8:49 AM CDT Narrative [facility] - 11/28/2023 8:03 AM CDT FASTING:YES FASTING: YES Chacha MARCUS [facility] MICROBIOLOGY - GENERAL ORD ERABLES Final Result [facility] [address] [place] [address] * HM PAP SMEAR WITH HPV (03/05/2022) Historical Provider HEALTH MAINTENANCE Final Result from Last 3 Months or Most Recently Relevant to Health Maintenance Insurance [facility] CHOICE PLUS CHOICE PLUS CHOICE PLUS Care Teams Application Security Developer Relationship Specialty Start Date End Date Chacha Sellers PA [address] [place] [address] PCP - General Family Medicine 03/09/19 Wilbert Dupont MD [address] [place] [address] Consulting Physician Family Medicine 03/09/19
--- OUTSIDE RECORDS SUMMARY | 2024-09-28 17:12 | XMS_ITS | Clinical Summary ---
Author Organization [address] Address [address] [place] [address] Care Team Providers Care Marriage Performer Name Role Phone Chacha Sellers Primary Care Provider [phone] Wilbert Dupont MD Unavailable + [phone] Allergies Active Allergy Reactions Criticality Noted Date [...] for anxiety 15 tablet 10/07/19 23 025 Discontinued( erapy completed) NIFEdipine (NIFEdipine CC) 30 mg [...] & Plan (11/22/2023 9:15 AM CDT): PMH: 11/22/23 Last pap: 02/2022 Last mammogram: [...] on. Assessment & Plan (04/03/2022 10:58 AM BLASTER HELPER): Stable, patient will continue current meds. Follow-up [...] Date Infertility associated with anovulation 07/03/2016 06/12/2019 Encounters Date Type Department Care Team Description 09/13/2024 10:00 AM CDT Telemedicine [facility] Family Medicine [address] [place] [id number] Annabel Desai NP Anxiety (Primary Dx) from Last 3 Months Immunizations Immunization Administration Dates Next Due Influenza LAIV (Nasal) 12/27/2017 Influenza, Quadrivalent, Edwige l Culture-based MDCK, Preservative Free, Antibiotic Free, Intramuscular 02/03/2022 Influenza, Quadrivalent, Spl it, Intramuscular 12/27/2017 Influenza, Quadrivalent, Spl it, Preservative Free, Intramuscular 01/22/2023,03/15/2021,01/23/2020,01/31 Influenza, Trivalent, Preser vative Free, Intramuscular 01/26/2017 Pfizer SARS-CoV-2 Monovalent Vaccination (12+ Yrs) PURPLE 08/04/2020,07/12/2020 TD Preservative Free 04/26/2005 Tdap 08/08/2021,10/25/2017 Surgical History Surgery Date Site/Laterality Comments OVUM / OOCYTE RETRIEVAL SECTION 09/11/2021 Medical History Medical History Date Comments HTN (hypertension), benign 07/22/2016 Infertility associated with anovulation 07/04/19 17 Kidney stone Chickenpox Age 7 Gestational diabetes On insulin at the end of Situational anxiety 09/01/2019 Pre-eclampsia in third trimester Family History Medical History Relation Name Comments Hypertension Father Sin Bradford Heart disease Maternal Grandfather Vinh Mullins Hyperlipidemia Maternal Grandfather Vinh Mullins Bypass Maternal Grandmother Nelly Mullins Diabetes Maternal Grandmother Nelly Mullins Early Maternal Grandmother Nelly Mullins Heart disease Maternal Grandmother Nelly Mullins Brain cancer Mother Dianna Lillyrtgiancarlo Cancer Mother Dianna Lillyrtney Hyperlipidemia Mother Dianna Coartney Hypertension Mother Dianna Coartney Diabetes Mother's Brother 1 Desmond Mullins Diabetes Mother's Brother 2 Desmond Mullins Diabetes Mother's Sister 1 Dilia Casillaslory Diabetes Mother's Sister 2 Dilia Jacksony Cancer Paternal Grandfather Max Bradford Pancreatic cancer Paternal Grandfather Max Riosne y Leukemia Paternal Grandmother Relation Name Status Comments Father Sin Bradford Alive Maternal Grandfather Vinh Mullins Maternal Grandmother Nelly Mullins Mother Dianna Bradford (Age 65) Mother's Brother 1 Desmond Mullins Mother's Brother 2 Desmond Mullins Alive Mother's Sister 1 Dilia Casillaslory Mother's Sister 2 Dilia Jacksony Alive Paternal Grandfather Max Bradford Paternal Grandmother Social History Tobacco Use Types Packs/Day Years [...] you are drinking? Patient does not drink 05/21/202 5 Q3: How often do you have si [...] on file Legal Sex Female 11:51 AM BLASTER HELPER Gender Identity Not on file Sexual Orientation Not on file Obstetrics History Para Term AB IAB SAB Ectopic Multiple Livin g Live Births 4 1 3 3 Date Outcome GA Total Labor Labor/2nd/3rd Weight Sex Type Anes PTL Marlin A1 A5 Name Clin Para SAB SAB SAB Last Filed Vital Signs Vital Sign Reading [...] 01/05/2024 10:57 AM CDT Plan of Treatment Health Maintenance Due Date Last Done Comments Cervical Cancer Screening 03/05/2023 03/05/2022, 04/2017 Covid-19 Vaccine ( season) 2023 01/22/2023, 01/16/2022, 04/04/2021, Additional history exists Regular Well Visit/Exam 18-64 11/21/2024 11/22/2023, 10/23/2022, 10/22/2021, Additional history exists Influenza Vaccine (Season Ended) 2024 01/22/2023, 02/03/2022, 03/15/2021, Additional history exists Depression Screening 09/13/2025 09/13/2024, 09/13/2024, 11/22/2023, Additional history exists DTaP/Tdap/Td Vaccine (3 - Td or Tdap) 08/09/2031 08/08/2021, 10/25/2017, 04/26/2005 Hepatitis B Screening Completed 11/27/2023 Hepatitis C Screening Completed 11/27/2023 HPV Vaccines Aged Out No longer eligi ble based on patient's age to complete this topic Pneumococcal vaccine <65 Aged Out No longer eligible based on patient's age to complete this topic Procedures Procedure Name Priority Date/Time Associated Diagnosis [...] Hep C Ab NON-REACTI VE NON-REACT YENI [facility] Comment: HCV antibody was non-reactive. There is no laboratory evidence of HCV infection. In most cases, no further action is required. However, if recent HCV exposure is suspected, a test for HCV RNA (test code 51343) is suggested. For additional information please refer to http://education.Adan/faq/AEW21j9 (This link is being provided for informational/ educational purposes only.) Blood 11/27/2023 8:49 AM CDT 11/27/2023 8:49 AM CDT Narrative [facility] - 11/28/2023 8:03 AM CDT FASTING:YES FASTING: YES us Chacha MARCUS LAB MICROBIOLOGY - GENERAL ORD ERABLES Final Result [facility] [address] [place] [address] * HM PAP SMEAR WITH HPV (03/05/2022) us Historical Provider HEALTH MAINTENANCE Final Result from Last 3 Months or Most Recently Relevant to Health Maintenance Insurance [facility] PLUS [facility] PLUS [facility] PLUS Care Teams Marriage Performer Relationship Specialty Start Date End Date Chacha Sellers PA [address] [place] [address] PCP - General Family Medicine 03/09/19 Wilbert Dupont MD [address] [place] [address] Consulting Physician Family Medicine 03/09/19
--- OUTSIDE RECORDS SUMMARY | 2024-09-28 17:12 | XMS_ITS | Clinical Summary ---
Author Organization [facility] Address [address] [place] [address] Phone Care Team Providers Care Spinning Machine Tender Name Role Phone Chacha Sellers Primary Care Provider [phone] Allergies Active Allergy Reactions Criticality Noted Date Comments Penicillins Rash Medium 05/23/2003 rash Medications NIFEdipine CC (ADALAT CC) 30 MG 24 hr tablet Take 30 mg by mouth 1 (one) time each day before breakfast 2 Active chlorthalidone (HYGROTON) 25 MG tablet Take 0.5 tablets (12.5 mg total) by mouth 1 (one) time each day 30 tablet 3 5 07/28/19 26 Active Active Problems Problem Noted Date Diagnosed Date Calcium oxalate calculus of kidney 05/30/2024 Essential hypertension 05/30/2024 Encounters Date Type Department Care Team Description 07/27/2024 Refill [facility] [address] [place] [address] Veronica Dumas from Last 3 Months Immunizations Immunization Administration Dates Next Due Influenza (IM) Preservative Free 01/26/2017 Influenza, Injectable, Mdck, Preservative Free, Quadrivalt 02/03/2022 Influenza, Injectable, Quadr ivalent, Preservative Free 01/22/2023,03/15/2021,01/23/2020,2018 Influenza, Quadrivalent 12/27/2017 TD Preservative Free 04/26/2005 Tdap 08/08/2021,10/25/2017 Social History Tobacco Use Types Packs/Day Years Used Date Smoking Tobacco: Never Smokeless Tobacco: Never Tobacco Cessation:Counseling Given: Not Answered Comments Unknown Sex and Gender Information Value Date Recorded Sex Assigned at Not on file Legal Sex Female 1:53 PM [facility] Gender Identity Not on file Sexual Orientation Not on file Last Filed Vital Signs Vital Sign Reading Time Taken Comments Blood Pressure - - Pulse - - Temperature - - Respiratory Rate - - Oxygen Saturation - - Inhaled Oxygen Concentration - - Weight 47.2 kg (104 lb) 05/30/2024 11:17 AM STILE RIPSAW OPERATOR Height 157.5 cm (5' 2) 05/30/2024 11:17 AM STILE RIPSAW OPERATOR Body Mass Index 19.02 05/30/2024 11:17 AM STILE RIPSAW OPERATOR Plan of Treatment Upcoming Encounters Date Type Department Care Team (Late st Contact Info) Description 11/27/2024 11:20 AM CDT Office Visit [facility] [address] [facility] [address] [place] [address] Shalonda Harmon PA [address] [facility] [address] [place] [address] 05/30/2025 11:20 AM STILE RIPSAW OPERATOR Office Visit [facility] [address] [facility] [address] [place] [address] Yobani Bell MD [address] [facility] [place] [place] [address] Health Maintenance Due Date Last Done Comments Pneumococcal PPSV23 Highest Risk Adult (1 of 3 - PCV13) 07/19/2006 COVID-19 Vaccine (3 - 2023-2 5 season) 2023 08/04/2020, 07/12/2020 Influenza Vaccine (Season Ended) 2024 01/22/2023, 02/03/2022, 03/15/2021, Additional history exists Insurance [facility] Care Teams Spinning Machine Tender Relationship Specialty Start Date End Date Chacha Sellers PA PCP - General Family Medicine 05/31/24
--- OUTSIDE RECORDS SUMMARY | 2024-09-28 17:12 | XMS_ITS | Clinical Summary ---
Author Organization [facility] Address [address] [place] [address] Care Team Providers Care Lumber Stacker Driver Name Role Phone Chacha Sellers Primary Care Provider [phone] Source Comments [facility],non-owned Affiliates and Associated Physician Practices is amultiple site organization consisting of ambulatory clinics and hospital sitesin [place], [place], [place] and [place]. This disclosure is being madepursuant to the Care Everywhere program and may not contain all information available regarding this patient. Last updated 18.[facility] Allergies Active Allergy Reactions Criticality Noted Date Comments Wound Dressing Adhesive Swelling 09/11/2021 Pt noticed it while wearing an N95 mask and had swelling and puffiness around her eyes Penicillins Rash Medium 09/11/2021 Medications * Be aware that medications may not be up to date on this document. Alwaysverify current medications with the patient. aspirin (ASPIRIN) 81 MG chew tablet Take 81 mg by mouth once daily Active Vit-Fe Fumarate-FA ( VITAMIN PO) Take 1 tablet by mouth once daily Active LORazepam (ATIVAN) 1 MG tablet Take 1 mg by mouth every 12 hours as needed for Anxiety Active vitamin D, cholecalciferol , 50 MCG (1999) tablet Take 2,000 Units by mouth once daily Active acetaminophen (TYLENOL) 500 MG capsule Take 1 (one) capsule by mouth every 8 hours as needed for Fever or Pain 30 capsule 1 2 Active polyethylene glycol 3350 (MIRALAX) 17 GM/SCOOP powder Take 17 (seventeen) g by mouth once daily As needed for constipation 500 g 1 2 Active plus iron (NATATAB) 29-1 MG tablet Take 1 (one) tablet by mouth once daily 90 tablet 4 2 Active ferrous sulfate 325 (65 FE) MG tablet Take 1 (one) tablet by mouth once daily 90 Each 1 2 Active labetalol (NORMODYNE; TRANDATE) 300 MG tablet Take 1 (one) tablet by mouth every 8 hours 90 tablet 3 2 Active NIFEdipine CR osmotic 24hr (ADALAT CC) 60 MG tabletIndicatio ns:Elevated blood pressure reading Take 1 (one) tablet by mouth 2 times daily 60 tablet 3 2 Active ibuprofen (MOTRIN) 600 MG tablet Take 1 (one) tablet by mouth every 6 hours as needed for Pain 40 tablet 1 2 Active docusate sodium (COLACE) 100 MG capsule Take 1 (one) capsule by mouth 2 times daily 60 capsule 1 2 Active Active Problems Problem Noted Date Diagnosed Date Elevated blood pressure reading 09/11/2021 Social History Tobacco Use Types Packs/Day Years Used Date Smoking Tobacco: Never Smokeless Tobacco: Never Alcohol Use Standard Drinks/Week Comments Not Currently 0 (1 standard drink = 0.6 oz pur e alcohol) [place] Depression Scale Answer Date Recorded RETIRED: Total Score 6 09/15/2021 Last EPDS Self Harm Result Not on file 09/15 Comments No Sex and Gender Information Value Date Recorded Sex Assigned at Not on file Legal Sex Female 1:23 PM INSTRUCTOR DECORATING Gender Identity Not on file Sexual Orientation Not on file Last Filed Vital Signs Vital Sign Reading Time Taken Comments Blood Pressure 131/86 09/15/2021 5:15 PM CDT Pulse 98 09/15/2021 5:15 PM CDT Temperature 36.9 C (98.5 F) 09/15/2021 5:15 PM CDT Respiratory Rate 16 09/15/2021 5:15 PM CDT Oxygen Saturation 100% 09/15/2021 5:15 PM CDT Inhaled Oxygen Concentration - - Weight 56.1 kg (123 lb 9.6 oz) 09/11/2021 1:37 P M CDT Height 157.5 cm (5' 2) 09/11/2021 1:37 PM CDT Body Mass Index 22.61 09/11/2021 1:37 PM CDT Plan of Treatment Health Maintenance Due Date Last Done Comments HIV SCREENING 07/19/2002 HEPATITIS C SCREENING 07/15/2005 DTAP/TDAP/TD VACCINES (1 - Tdap) 07/19/2006 HEPATITIS B VACCINE (1 of 3 - 19+ 3-dose series) 07/19/2006 PAP SMEAR 03/17/2020 03/17/2017 COVID-19 VACCINE ( season) 2023 04/04/2021, 08/04/2020, 07/12/2020 DEPRESSION SCREENING 04/26/2024 INFLUENZA VACCINE (Season Ended) 2024 03/15/2021, 01/23/2020, 01/31/2019, Additional history exists ZOSTER VACCINE (1 of 2) 07/19/2037 HIB VACCINE Aged Out No longer eligi ble based on patient's age to complete this topic HPV VACCINE Aged Out No longer eligi ble based on patient's age to complete this topic MENINGOCOCCAL (Group B) VACCINE SHARED DECISION-MAKING Aged Out No longer eligible based on patient's age to complete this topic MENINGOCOCCAL GROUPS A/C/Y/W VACCINE Aged Out No longer eligible based on patient's age to complete this topic PNEUMOCOCCAL VACCINE Aged Out No long er eligible based on patient's age to complete this topic Insurance [facility] Advance Directives * Full Code (Latest Code Status on File) Date Activated Date Inactivated Comments 09/11/2021 3:41 PM 09/15/2021 6:36 AM Care Teams Lumber Stacker Driver Relationship Specialty Start Date End Date Chacha Sellers PA [address] [facility] [place] [address] [place] [address] PCP - General Physician Machine Puller And Laster 09/11/21
== END 2024-09-28 17:08 | disposition home or self-care (01) ==
PROVIDERS: PCP Physician Assistant; Visit Provider Urology
DX: N20.0 Calculus of kidney (principal); Z87.442 Personal history of urinary calculi
CPT/HCPCS: 74018

== ENCOUNTER 2024-11-15 14:10 | Outpatient (CLI) | payer OTHER, SELFPAY ==
--- NOTE | ~2024-11-15 | XR_ITS ---
XR abdomen/kub 1V 11/15/2024 14:31 INDICATION: Left-sided lithotripsy 2 weeks ago. TECHNIQUE: KUB COMPARISON: None FINDINGS: Bowel gas pattern is normal. Moderate colonic fecal loading. There is no evidence of free a ir, mass, organomegaly, ascites or obstruction. There are multiple bilateral renal stones. The bones appear intact. IMPRESSION: 1: Bilateral nephrolithiasis.. Reviewed, dictated and finalized at location A.
--- OUTSIDE RECORDS SUMMARY | 2024-11-15 14:18 | XMS_ITS | Referral Summary ---
Author Organization [address] Address [address] [address] Care Team Providers Care Religious Education Teacher Name Role Phone Chacha Sellers Primary Care Provider [phone] Wilbert Dupont MD Unavailable + [phone] Encounters Date Type Department Care Team Description 09/13/2024 10:00 AM CDT Telemedicine [facility] Medical Group Family Medicine [address] [place] [phone] Annabel Desai NP Anxiety (Primary Dx) from Last 3 Months Allergies Active Allergy Reactions Criticality Noted Date Comments Adhesive Swelling Medium 01/24/2021 Penicillin V Potassium Rash Medium 06/13/2019 rash Penicillins Rash Medium 05/23/2003 rash Medications chlorthalidone (HYGROTON) 25 mg tablet Take 0.5 tablets (12.5 mg total) by mouth daily 05/29/2024 Active escitalopram (LEXAPRO) 10 mg tabletIndicatio ns:Anxiety Take 1 tablet (10 mg total) by mouth daily 90 tablet 4 09/13/2024 Active Active Problems Problem Noted Date Diagnosed [...] on. Assessment & Plan (04/03/2022 10:58 AM COOK ENCHILADA): Stable, patient will continue current meds. Follow-up [...] on file Legal Sex Female 11:51 AM COOK ENCHILADA Gender Identity Not on file Sexual Orientation [...] Hep C Ab NON-REACTI VE NON-REACT [facility] Comment: HCV antibody was non-reactive. There is no laboratory evidence of HCV infection. In most cases, no further action is required. However, if recent HCV exposure is suspected, a test for HCV RNA (test code 40643) is suggested. For additional information please refer to http://education.Urban Ladder/faq/ZZL26p0 (This link is being provided for informational/ educational purposes only.) Blood 11/27/2023 8:49 AM CDT 11/27/2023 8:49 AM CDT Narrative [facility] - 11/28/2023 8:03 AM CDT FASTING:YES FASTING: YES us Chacha MARCUS LAB MICROBIOLOGY - GENERAL ORD ERABLES Final Result [facility] [address] [place] [address] * PAP SMEAR WITH HPV (03/05/2022) us Historical Provider MD HEALTH MAINTENANCE Final Result from Last 3 Months or Most Recently Relevant to Health Maintenance Insurance [facility] PL[facility] PLUS Care Teams Religious Education Teacher Relationship Specialty Start Date End Date Chacha Sellers PA [address] [place] [address] PCP - General Family Medicine 03/09/19 Wilbert uDpont MD [address] [place] [address] Consulting Physician Family Medicine 03/09/19
--- OUTSIDE RECORDS SUMMARY | 2024-11-15 14:18 | XMS_ITS | Clinical Summary ---
Author Organization [facility] Address [address] [place] [phone] Phone Care Team Providers Care Floor Layer Tile Name Role Phone Chacha Sellers Primary Care Provider [phone] Allergies Active Allergy Reactions Criticality Noted Date [...] Encounters Date Type Department Care Team Description 10/17/2024 Orders Only [facility] [address] [place] [address] Natalee Deal MA Essential hypertension (Primary Dx) 10/05/2024 Orders Only [facility] [address] [place] [address] Natalee Deal MA Nephrolithiasis (Primary Dx) from Last 3 Months Immunizations [...] on file Legal Sex Female 1:53 PM [facility] Gender Identity Not on file Sexual Orientation Not on file Last Filed Vital Signs Vital Sign Reading Time Taken Comments Blood Pressure - - Pulse - - Temperature - - Respiratory Rate - - Oxygen Saturation - - Inhaled Oxygen Concentration - - Weight 47.2 kg (104 lb) 05/30/2024 11:17 AM DROP WIRE ALIGNER Height 157.5 cm (5' 2) 05/30/2024 11:17 AM DROP WIRE ALIGNER Body Mass Index 19.02 05/30/2024 11:17 AM DROP WIRE ALIGNER Plan of Treatment Upcoming Encounters Date Type Department Care Team (Late st Contact Info) Description 11/27/2024 11:20 AM CDT Telemedicine [facility] [address] [facility] [address] [place] [id number] Shalonda Harmon PA [address] [address] 05/30/2025 11:20 AM DROP WIRE ALIGNER Office Visit [facility] [address] [facility] [address] [place] [address] Yobani Bell MD [address] [address] Health Maintenance Due Date Last Done Comments Pneumococcal PPSV23 Highest Risk Adult (1 of 3 - PCV13) 07/19/2006 COVID-19 Vaccine (3 - 2023-2 5 season) 2023 08/04/2020, 07/12/2020 Influenza Vaccine (#1) 2024 , 02/03/2022, 03/15/2021, Additional history exists Procedures Procedure Name Priority Date/Time Associated Diagnosis Comments LITHOLINK 24-HOUR URINE, [place] Routine 10/20/2024 5:20 AM CDT Nephrolithiasis from Last 3 Months Results * (ABNORMAL) Litholink 24-Hour Urine Panel (10/20/2024 5:20 AM CDT) CYSTINE, URINE, QUALITATIVE CANCELED [facility] Comment: Test not performed. Previous test results on file. Result canceled by the ancillary. Volume, 24-Hour Urine 2,820 500 - 4,000 mL/24 hr [facility] 1 Calcium oxalate index, 24 hour Urine 1.18(L) 6.00 - 10.00 [facility] 1 Calcium, 24 hour Urine 76 <200 mg/24 hr [facility] 1 Oxalate, 24 hour Urine 19(L) 20 - 40 mg/24 hr [facility] 1 Citrate, 24 hour Urine 446(L) >550 mg/24 hr [facility] 1 CALCIUM PHOSPHATE SATURATION 0.32(L) 0.50 - 2.00 [facility] 1 pH of 24 hour Urine 6.368(H) 5.800 - 6.200 [facility] 1 Urate, 24 hour Urine 0.18 <1.00 [facility] 1 Uric Acid (Urate), 24 Hour Urine 510 <750 mg/24 hr [facility] 1 Sodium, 24 hour Urine 99 50 - 150 mmol/24 hr [facility] 1 Potassium, 24 hour Urine 31 20 - 100 mmol/24 hr [facility] 1 Magnesium, 24 hour Urine 92 30 - 120 mg/24 hr [facility] 1 Phosphate, 24 hour Urine 688 600 - 1,200 mg/24 hr [facility] 1 AMMONIUM, URINE 41 15 - 60 mmol/24 hr [facility] 1 Chloride, 24 hour Urine 98 70 - 250 mmol/24 hr [facility] 1 Sulfate, 24 hour Urine 27 20 - 80 meq/24 hr [facility] 1 Urea nitrogen, 24 hour Urine (UUN) 7.85 6.00 - 14.00 g/24 hr [facility] 1 PROTEIN CATABOLIC RATE 1.3 0.8 - 1.4 g/kg/24 hr [facility] 1 Creatinine, 24 hour Urine 1,043 Not Applic. mg/24 hr [facility] 1 CREATININE / KG BODY WEIGHT 23.0(H) 8.7 - 20.3 mg/24 hr/kg [facility] 1 Calcium/Kg Body Weight 1.7 <4.0 mg/24 hr/kg [facility] 1 RATIO CALCIUM TO CREATININE UA 73 51 - 262 mg/g creat [facility] 1 COMMENT Note [facility] 1 PDF . [facility] 1 10/20/2024 5:20 AM CDT 10/20/2024 11:00 PM CDT Narrative [facility] - 10/26/2024 7:09 PM CDT Performed at: - [facility] [place] [id number] Nozzle Worker: Jovany Reza PhD, Phone: [phone] Shalonda MARCUS LAB URINE ORDERABLES Edited Re sult - Final [facility] 1 from Last 3 Months Insurance HEALTHCARE Care Teams Floor Layer Tile Relationship Specialty Start Date End Date Chacha Sellers PA PCP - General Family Medicine 05/31/24
--- OUTSIDE RECORDS SUMMARY | 2024-11-15 14:18 | XMS_ITS | Clinical Summary ---
Author Organization [address] Address [address] [place] [id number] Care Team Providers Care Sweeper Brush Maker Machine Name Role Phone Chacha Sellers Primary Care Provider [phone] Wilbert Dupont MD Unavailable + [phone] Allergies Active Allergy Reactions Criticality Noted Date [...] on. Assessment & Plan (04/03/2022 10:58 AM DRUM OPERATOR): Stable, patient will continue current meds. Follow-up [...] Team Description 09/13/2024 10:00 AM CDT Telemedicine [facility] [address] [place] [id number] Annabel Desai NP Anxiety (Primary Dx) [...] History Relation Name Comments Hypertension Father Sin Coartney Heart disease Maternal Grandfather Vinh Mullins Hyperlipidemia Maternal Grandfather Vinh Mullins Bypass Maternal Grandmother Nelly Mullins Diabetes Maternal Grandmother Nelly Mullins Early Maternal Grandmother Nelly Mullins Heart disease Maternal Grandmother Nelly Mullins Brain cancer Mother Dianna Bradford Cancer Mother Dianna Bradford Hyperlipidemia Mother Dianna Bradford Hypertension Mother Dianna Lillyrtgiancarlo Diabetes Mother's Brother 1 Desmond [place] Diabetes Mother's Brother 2 Desmond Mullins Diabetes Mother's Sister 1 Dilia Preciado Diabetes Mother's Sister 2 Dilia Casillaslory Cancer Paternal Grandfather Max Bradford Pancreatic cancer Paternal Grandfather Max Riosne y Leukemia Paternal Grandmother Relation Name Status Comments Father Sin Bradford Alive Maternal Grandfather Vinh Mullins Maternal Grandmother Nelly Mullins Mother Dianna Bradford (Age 65) Mother's Brother 1 Desmond Mullins Mother's Brother 2 Desmond Mullins Alive Mother's Sister 1 Dilia Casillaslory Mother's Sister 2 Dilia Preciado Alive Paternal Grandfather Max Bradford Paternal Grandmother [...] on file Legal Sex Female 11:51 AM DRUM OPERATOR Gender Identity Not on file Sexual Orientation [...] Hep C Ab NON-REACTI VE NON-REACT YENI [facility] Comment: HCV antibody was non-reactive. There is no laboratory evidence of HCV infection. In most cases, no further action is required. However, if recent HCV exposure is suspected, a test for HCV RNA (test code 24317) is suggested. For additional information please refer to http://education.[employer]/faq/VMC44l0 (This link is being provided for informational/ educational purposes only.) Blood 11/27/2023 8:49 AM CDT 11/27/2023 8:49 AM CDT Narrative [facility] - 11/28/2023 8:03 AM CDT FASTING:YES FASTING: YES Chacha [facility] MICROBIOLOGY - GENERAL ORD ERABLES Final Result [facility] [address] [place] [address] * HM PAP SMEAR WITH HPV (03/05/2022) Historical Provider MD HEALTH MAINTENANCE Final Result from Last 3 Months or Most Recently Relevant to Health Maintenance Insurance [facility] HMO/PPO Address: [address] [address] [place] [address] [address] [facility] HMO/PPO Address: [address] [address] [place] [address] [address] [facility] HMO/PPO Address: [address] [address] [place] [address] Care Teams Sweeper Brush Maker Machine Relationship Specialty Start Date End Date Cloin, Chacha Concepc[place], PA [address] [place] [address] PCP - General Family Medicine 03/09/19 Wilbert Dupont MD [address] [place] [address] Consulting Physician Family Medicine 03/09/19
--- OUTSIDE RECORDS SUMMARY | 2024-11-15 14:18 | XMS_ITS | Encounter Summary ---
Author Organization [facility] Facility Care Team Providers Care Medical Billing Clerk Name Role Phone Chacha Sellers Primary Care Provider [phone] Wilbert Dupont MD Unavailable + [phone] Encounter Details Date Type Department Care Team (Latest Contact Info) Description 01/27/2018 Orders Only [facility] CLINCONV ProviderOralia MD [address] [place] [id number] Social History Tobacco Use Types Packs/Day Years Used Date Smoking Tobacco: Never Assessed Comments Unknown Sex and Gender Information Value Date Recorded Sex Assigned at Not on file 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
--- OUTSIDE RECORDS SUMMARY | 2024-11-15 14:18 | XMS_ITS | Encounter Summary ---
Author Organization [facility] Facility Care Team Providers Care Mascara Molder Name Role Phone Chacha Sellers Primary Care Provider [phone] Wilbert Dupont MD Unavailable + [phone] Encounter Details Date Type Department Care Team (Latest Contact Info) Description 07/03/2016 Orders Only [facility] CLINCONV ProviderOralia MD [address] [place] [id number] Social History Tobacco Use Types Packs/Day Years Used Date Smoking Tobacco: Never Assessed Comments Unknown Sex and Gender Information Value Date Recorded Sex Assigned at Not on file 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 Historical Provider [facility] JEWEL[facility] MCCARTHY Final Result documented in this encounter Visit Diagnoses Not on filedocumented in this encounter Care Teams Mascara Molder Relationship Specialty Start Date End Date Chacha Sellers PA [address] [place] [address] PCP - General Family Medicine 03/09/19 Wilbert Dupont MD [address] [place] [address] Consulting Physician Family Medicine 03/09/19 documented as of this encounter
--- OUTSIDE RECORDS SUMMARY | 2024-11-15 14:18 | XMS_ITS | Clinical Summary ---
Author Organization [facility] [employer] Address [address] [place] [address] Care Team Providers Care Letter Stamping Machine Operator Name Role Phone Chacha Sellers Primary Care Provider [phone] Source Comments [facility] [employer],non-owned Affiliates and Associated Physician Practices is amultiple site organization consisting of ambulatory clinics and hospital sitesin [place], [place], [place] and [place]. This disclosure is being madepursuant to the Care Everywhere program and may not contain all information available regarding this patient. 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 Gender Identity Not on file Sexual Orientation [...] of 3 - 19+ 3-dose series) 07/19/2006 HPV VACCINE (1 - 3-dose SCDM series) 07/19/2014 COVID-19 VACCINE ( season) 2023 04/04/2021, 08/04/2020, 07/12/2020 DEPRESSION SCREENING 04/26/2024 INFLUENZA VACCINE (#1) 2024 , 01/23/2020, 01/31/2019, Additional history exists ZOSTER VACCINE [...] patient's age to complete this topic Insurance [facility] Advance Directives * Full Code (Latest Code Status on File) Date Activated Date Inactivated Comments 09/11/2021 3:41 PM 09/15/2021 6:36 AM Care Teams Letter Stamping Machine Operator Relationship Specialty Start Date End Date Chacha Sellers PA [address] [phone] PCP - General Physician Alining Inspector 09/11/21
== END 2024-11-15 14:11 | disposition home or self-care (01) ==
PROVIDERS: PCP Physician Assistant; Visit Provider Urology
DX: N20.0 Calculus of kidney (principal)
CPT/HCPCS: 74018